=== PATIENT | male | born 1935 | race Caucasian/White ===

== ENCOUNTER 2018-02-10 06:29 | Day surgery (SDC) | payer OTHER, SELFPAY ==
[2018-02-04 15:43] VITALS: BMI 24.5
[2018-02-10] VITALS (14 sets, daily range): BP systolic 94–149; BP diastolic 47–76; PULSE 69–75; RESP 12–18; TEMP 35.7–36.6; O2SAT 92–100; BMI 24.5
--- NOTE | 2018-02-10 | DI.RAD.S_ITS ---
PROCEDURE: XR KNEE LT 1TO2V INDICATIONS: POST TOTAL LEFT KNEE TECHNIQUE: 2 view(s) of the knee acquired. COMPARISON: None. FINDINGS: Bones: Patient is status post knee joint arthroplasty. Hardware components are in expected positions. Visualized bony structures are intact. Soft tissues: Overlying postoperative changes are noted. IMPRESSION: Status post left knee arthroplasty with expected postsurgical change. No gross complication. Dictated by: Deedee Miranda M.D. on 02/10/2018 at 10:44 Approved by: Deedee Miranda M.D. on 02/10/2018 at 10:44
--- NOTE | 2018-02-10 07:27 | PM.PREOP ---
Pre-operative Note Interval Note Pre-op Check: Yes History & Physical Reviewed by Physician and Yes Exam Performed Changes: No
[2018-02-10] MEDS: CELECOXIB 200 MG CAPSULE PO (07:34)
[2018-02-10] MEDS: ACETAMINOPHEN 325 MG TABLET 975 MG PO ×2 (07:34→14:39)
[2018-02-10] MEDS: LACTATED RINGERS 1,000 ML 42 ML IV (07:45)
[2018-02-10] MEDS: CEFAZOLIN 2 GM/100 ML FROZ.PIGGY IV ×2 (07:50→16:57)
--- NOTE | 2018-02-10 07:55 | PM.OP.1 ---
Operative Date/Time/Diagnoses Date of procedure: 02/10/18 Time of procedure: 09:23 Pre-op diagnosis: Left knee osteoarthritis Post-op diagnosis: same Procedure & Clinicians Procedure: Left total knee arthroplasty Same procedure as scheduled: Yes Indications: The patient presents today for total knee arthroplasty after failure of conservative treatment. The nature of the procedure including the risks and benefits, alternatives, postoperative course and expected outcome were discussed and all questions answered. Consent was obtained. Operative site confirmed and marked. 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 Closure Type: primary Specimen(s): none sent Implants & Drains: [employer] BCS: 7 femoral component, 7 tibial component, 9 mm BCS polyethylene tray and 35 x 9 mm round patella Applied: implant(s) Estimated Blood Loss (mL): 50 Blood products transfused: none Tourniquet time (min): 22 Procedure in detail: The patient was taken to the operative suite and placed under spinal anesthesia. The patient was given prophylactic antibiotics prior to surgery. The patient was also given tranexamic acid, 1 g, just prior to surgery for postoperative hemostasis. [The lateral knee was prepped and the joint injected with 20 mL of 1% Lidocaine with epinephrine. ] The knee was then prepped and draped in usual sterile fashion. The leg was exsanguinated with an Esmarch dressing and the tourniquet raised to 300 torr. A 15 cm anterior incision was made. Next a medial trivector arthrotomy was made. The extensor mechanism was marked to ensure accurate repair. Initial exposing dissection was carried out medially and laterally. The knee was then extended and the patellar thickness was measured and a cut made removing approximately [9] mm of bone. The patella was then sized and drilled. Some excess lateral bone was excised and the patellofemoral ligament released. The knee was then flexed and the intramedullary femoral guide doris placed. The distal femoral cut was made in [6]? of valgus at the +2 position. The femoral size was measured and the appropriate cutting block was then placed and the anterior, posterior and chamfer cuts made. The extra medullary tibial alignment doris was then placed along the anatomic axis of the tibia appropriating the normal slope. The guide was set to remove approximately [10] mm from the less affected [lateral] side. The proximal tibial cut was then made with an oscillating saw. All meniscus and bony debris was then removed. Flexion extension gaps were checked. [No specific balancing was required other than routine removal of osteophytes]. The soft tissues were then injected with a combination of [20 mL of half percent Marcaine with epinephrine and 20 mL of Exparel]. The trial components were then placed. The knee went into full extension and flexion beyond 120?. There was [excellent] medial- lateral balance throughout motion. Patellar tracking was [excellent]. The trial components were removed and the knee was cleansed with Pulsavac irrigation and dried. The final components were cemented in with high viscosity vacuum mixed bone cement with antibiotics. The knee was held in extension and the patellar clamp until the cement had adequately cured. The knee was irrigated and inspected for any further debris. The knee was then irrigated with dilute Betadine solution. The extensor mechanism was closed with 5 interrupted #1 Vicryl sutures in 90 degrees of flexion. [The joint was then injected with a combination of 1 g of tranexamic acid and 20 mL of quarter percent Marcaine with epinephrine.] The subcutaneous tissue was closed with 2-0 Vicryl. The skin was closed with rodrick and surgical adhesive. An Aquacell dressing and Milad wrap were then applied. The patient tolerated the procedure well and was returned to recovery room in good condition. Complications: none Condition: stable Disposition: PACU Plan for aftercare: Routine aftercare for total knee arthroplasty. Aspirin for DVT prophylaxis.
--- NOTE | 2018-02-10 08:25 | SUR.OPER ---
Supine on padded OR bed. Pillow under head, arms secured on padded armboards <90 degree abduction. Safety belt across torso. Non-operative leg secured with tape over blanket over lower leg. Operative leg secured in DeMayo/Barak positioner. Foam padded brace at thigh of operative leg.
[2018-02-10] MEDS: BUPIVACAINE 0.5% W/ EPI (PF) 20 ML, BUPIVACAINE LIPOSOME 266 MG, SODIUM CHLORIDE 0.9% 8... INJ (08:33)
[2018-02-10] MEDS: POVIDONE-IODINE 15 ML, SODIUM CHLORIDE 0.9% 250 ML TOP (08:34)
[2018-02-10] MEDS: BUPIVACAINE 0.5% W/ EPI (PF) 10 ML, TRANEXAMIC ACID 1,000 MG, SODIUM CHLORIDE 0.9% 20 ML INJ (08:34)
[2018-02-10] MEDS: LIDOCAINE 1% W/EPI INJ 20 ML INJ (08:34)
--- NOTE | 2018-02-10 10:21 | SUR.PHASEI ---
REPORT CALLED TO VALENTINA MÁRQUEZ ON ACUTE CARE FLOOR. PT IN STABLE CONDITION, VSS. IV SITE CLEAR. DRSG TO SURGICAL SITE C/D/I. SURGICAL EXTREMITY WARM TO TOUCH, +PULSE, +SENSTATION, +STRENGTH, AND CAP REFILL WNL. PT DENIES ANY PAIN/DISCOMFORT OR NAUSEA. PT BEING TRANSFERED TO ACUTE CARE FLOOR AT THIS TIME.
--- NOTE | 2018-02-10 10:33 | SUR.PHASEI ---
PT TRANSFERED TO ACUTE CARE FLOOR. DURING TRANSPORT PT TALKING TO RN. BEDSIDE REPORT GIVEN TO VALENTINA MÁRQUEZ. TRANSFERRED CARE OF PT TO VALENTINA MÁRQUEZ.
[2018-02-10] MEDS: LACTATED RINGERS 1,000 ML 125 ML IV (11:20)
--- NOTE | 2018-02-10 14:53 | PC.NURSE ---
Pt resting in bed, spouse at the bedside. Pt denies pain, nausea, or shortness of breath. O2 sat is 100% on RA. Pt now working with P.T. in the room and will transfer to the bathroom to attempt voiding. Pt oriented to room, call light, bed controls and tv controls.
--- NOTE | 2018-02-10 15:22 | PT.IIE ---
Current Diagnoses Unilateral primary osteoarthritis, left knee (02/10/18) Surgery Performed Operation Date: 02/10/18 07:45 Actual Procedures p Total Knee Arthroplasty(Left) - Nahun Huang MD Surgical History (Last Reviewed 02/10/18 @ 17:06 by Charanjit Renteria, PT, [place]) H/O hernia repair (Acute) H/O prostatectomy (Acute ~2009) History of bladder surgery (Acute ~03/2013) History of total right hip arthroplasty (Acute) S/P foot surgery, right (Acute) S/P left knee arthroscopy (Acute) Medical History (Last Reviewed 02/10/18 @ 17:06 by Charanjit Renteria, PT, [place]) Bilateral knee pain (Acute) Bradycardia (Acute) Carpal tunnel syndrome of right wrist (Acute) Cataract fragments in both eyes following surgery (Acute) Degenerative arthritis (Acute) Erectile dysfunction (Acute) Hearing loss (Acute) Hyperlipidemia (Acute) Hypertension (Acute) Memory loss (Acute) Osteoporosis (Acute) Sleep apnea (Acute) Urinary incontinence (Acute) Physical Therapy Inpatient Evaluation/Re-Eval M1 PT/OT-IP Prior Functional Status Start: 02/10/18 17:25 Freq: NEEDED Status: Active Protocol: Document 02/10/18 15:22 MDD (Rec: 02/10/18 17:33 MDD [id number]) Medical Review Prior Functional Status Medical History Reviewed Yes Communication nml Mobility and Gait independent Activities of Daily Living and IADL's independent Social History Household Members spouse Living Arrangements House Number of Floors (Floors) One Floor Number of Stairs To Enter/Railing? 3 steps to enter, R hand railing Home Environment Standard Height Toilet Walk in Shower Home Equipment Front Wheel Walker Straight Cane Raised Toilet Seat Without Armrests Employment Status Retired Additional Social History Comment Pt lives with his who is very supportive. M2 PT-IP Current Condition Start: 02/10/18 17:25 Freq: NEEDED Status: Active Protocol: Document 02/10/18 15:22 MDD (Rec: 02/10/18 17:33 MDD [id number]) Physical Therapy Current Condition Current Condition Evaluation Date 02/10/18 Treatment Diagnosis s/p Left TKA Onset Date 02/10/18 Weight Bearing Status Weight Bearing Status Weight Bear as Tolerated M3 PT-IP Subjective Start: 02/10/18 17:25 Freq: NEEDED Status: Active Protocol: Document 02/10/18 15:22 MDD (Rec: 02/10/18 17:33 MDD [id number]) Subjective Physical Therapy Visit Type Type Initial Evaluation Visit Start Time 14:35 Visit Stop Time 15:22 Total Visit Minutes 47 Number of MANUAL ARTS THERAPIST Visits 0 Physical Therapy Visit Comments Patient Comments Pt reports no pain in his left knee. He is very motivated to go home tonight if appropriate. Therapy Pain Assessment Pain When Pain Assessed At Rest Pain Present Pain Present Denied Pain M4 PT-IP Mobility and Gait Start: 02/10/18 17:25 Freq: NEEDED Status: Active Protocol: Document 02/10/18 15:22 MDD (Rec: 02/10/18 17:33 MDD [id number]) PT-Bed Mobility Assessment Rolling Level of Assist Independent Supine to Sit Supine to Sit Independent Sit to Supine Sit to Supine Independent Scooting Scooting to Edge of Bed Independent Scooting Up and Down in Bed Independent PT-Transfer Assessment Sit to and From Stand Sit to and from Stand Standby Assistance Equipment Transfer Assistive Device Gait Belt Front Wheeled Walker Gait Assessment Gait Gait Assistance Required: Standby Assistance Distance (Feet) (feet) 200 Able to Maintain Weight Bearing Status Yes During Gait Assistive Devices Assistive Device Gait Belt Front Wheeled Walker Gait Deviations General Gait Pattern Step-to Gait Stair Climbing Assessment Evaluation Level of Assist On Stairs Standby Assistance Devices Stair Climbing Assistive Devices Right Railing Technique/Endurance Stair Climbing Direction Ascend and Descend Stair Climbing Technique Step to Step Number of Steps Climbed 3 Query Text: Stair Climbing Set # Repetitions (reps) 2 PT-Balance Assessment Sitting Balance and Reactions Static Sitting Balance Ability Normal Dynamic Sitting Balance Ability Normal Standing Balance and Reactions Static Standing Balance Ability Normal Dynamic Standing Balance Ability Good M5 PT-IP Objective Assessments Start: 02/10/18 17:25 Freq: NEEDED Status: Active Protocol: Document 02/10/18 15:22 MDD (Rec: 02/10/18 17:33 [facility] [id number]) Orientation Orientation/Cognition Level of Alertness Alert Orientation Name Age Birthday Month Date Year Day of Week Place Situation Language Function Ability No Deficits Noted Safety Awareness Understands Safety Issues Memory Description No Deficits Noted Gross Range of Motion Lower Extremity ROM Assessment Within Functional Limits Strength Lower Extremity Strength Assessment Within Functional Limits Coordination Assessment Gross Coordination Gross Coordination WNL Sensation Assessment Sensation Gross Sensation WNL M6 PT-IP Treatment Start: 02/10/18 17:25 Freq: NEEDED Status: Active Protocol: Document 02/10/18 15:22 MDD (Rec: 02/10/18 17:33 [facility] [id number]) Physical Therapy Treatment Exercises Knee ROM Measurement 0 to 100 Education Education Provided Precautions Weight Bearing Status Post-Op Packet Safety Other Treatments Other Treatment Performed Quick review of HEP. M7 PT-IP Assessment and Plan Start: 02/10/18 17:25 Freq: NEEDED Status: Active Protocol: Document 02/10/18 15:22 MDD (Rec: 02/10/18 17:33 [facility] [id number]) PT Summary Assessment and Plan Potential Rehabilitation Potential Excellent Status of Condition at Evaluation Stable Summary Progress Towards Goals Safe For Discharge Goals Met Assessment Summary Pt demonstrates independent bed mobility, independence with transfers and SBA for gait. He demonstrated ability to ascend/descend 6 steps total using R hand railing with SBA. Considered safe to d/c home when medically appropriate. Goals Bed Mobility Goal Independent Transfer Goal Independent Gait Goal Standby Assistance Gait Distance 150 Other Goals Ascend/descend 3 steps with R hand railing Days to Meet Goals 2 Frequency of Treatment Frequency Of Treatment Twice a Day Treatment Plan Physical Therapy Treatment Plan Gait Training Therapeutic Exercise Other Recommendations and Next Treatment If pt has not discharged home Focus by tomorrow, may benefit from additional review of HEP. Recommendations To Nursing Amount of Assist Needed Standby Assistance Discharge Recommendations PT Discharge Recommendations Home
== END 2018-02-10 20:25 | disposition home or self-care (01) ==
LOC: AC 19:39 → OR 02-11 07:41
PROVIDERS: PCP Family Medicine; Visit Provider Orthopaedic Surgery
PROC: 0SRD0JZ Replacement of Left Knee Joint with Synthetic Substitute, Open Approach (ICD-10-PCS; CPT 27447; principal; 2018-02-10 07:45)
DX: M17.12 Unilateral primary osteoarthritis, left knee (principal); G47.33 Obstructive sleep apnea (adult) (pediatric); I10 Essential (primary) hypertension
CPT/HCPCS: 27447; 73560; 94762; 97116; 97161; C1776; C9290; J0690; J1100; J2250; J2274; J2405; J2704; J3010